=== PATIENT | female | born 1980 | race Caucasian/White ===

== ENCOUNTER → 2019-12-04 08:14 | Outpatient (CLI) | payer BC, SELFPAY ==
--- NOTE | ~2019-12-04 | MMUS_ITS ---
EXAMINATION: MM diagnostic bryce BI w cheyanne, US breast LT limited HISTORY: Palpable lump in the upper outer quadrant of the left breast, history of breast cancer in he r mother TECHNIQUE: Craniocaudal, mediolateral, and mediolateral oblique 3-D tomosynthesis images of the breas ts were performed and synthetic 2-D images were generated. . Compression views of the left breast are also obtained. CAD analysis was submitted and interpreted. High resolution limited left breast ultra sound was performed. COMPARISON: 11/10/2018, 04/02/2016 BREAST PARENCHYMAL COMPOSITION: The breasts are heterogeneously dense, which may obscure small masses . FINDINGS: MAMMOGRAPHIC FINDINGS: There is no evidence of suspicious mass, calcification, or architectural distortion in either breast to suggest malignancy. There has been no suspicious interval change. No mammographic correlate is i dentified for the reported palpable abnormality of the left breast. ULTRASOUND: There are four oval, circumscribed, parallel, hypoechoic masses with posterior acoustic enhancement a nd no internal vascularity at the 2:00 location 7 cm from the nipple in the area of palpable concern. The largest measures 7 mm x 3 mm. IMPRESSION: 1. Probable cysts in the upper outer quadrant of the left breast in the area of palpable concern. 2. Recommend 6 month follow-up targeted left breast ultrasound and annual screening mammography of th e right. BI-RADS category 3, probably benign findings. Reviewed, dictated and finalized at location A. 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 Probable cysts in the upper outer quadrant of the left breast in the area of palpable concern. 2. Recommend 6 month follow-up targeted left breast ultrasound and annual scree cielo mammography of the right. BI-RADS category 3, probably benign findings.
== END ==
PROVIDERS: Visit Provider Nurse Practitioner
DX: N63.21 Unspecified lump in the left breast, upper outer quadrant (principal); R92.8 Other abnormal and inconclusive findings on diagnostic imaging of breast
CPT/HCPCS: 76642; 77062; 77066; G0279

== ENCOUNTER → 2020-06-28 14:40 | Outpatient (CLI) | payer BC, SELFPAY ==
--- NOTE | ~2020-06-28 | US_ITS ---
US breast BI complete 06/28/2020 15:23 Indication: Dense breast. Six-month follow-up breast abnormality. Procedure: High-resolution bilateral breast ultrasound: Comparison: Comparison to multiple prior studies sequentially, with oldest reviewed study dated 01/2014. Findings: Right breast ultrasound: At 10:00, 7 cm from the nipple, there is an oval hypoechoic mass with parallel orientation, no signif icant posterior features or internal vascularity. There is heterogeneous internal echotexture. This m ass measures 7 x 5 x 7 mm. There are multiple additional simple and complicated cysts of the right br east. Left breast ultrasound: Multiple simple and complicated cyst of the left breast. At 2:00, 7 cm from the nipple, there is an o moses hypoechoic mass with circumscribed margins, parallel orientation, no posterior features measuring 6 x 3 x 5 mm. At 2:00, 7 cm from the nipple, there is an oval hypoechoic mass with parallel orientat ion, no posterior features measuring 4 mm maximum dimension. Impression: 1: Probable benign bilateral breast masses. Digital diagnostic bilateral mammogram recommended. BI-RADS CATEGORY 0 - INCOMPLETE STUDY, NEED ADDITIONAL IMAGING EVALUATION. Reviewed, dictated and finalized at location A. Impression: 1: Probable benign bilateral breast masses. Digital diagnostic bilateral mammog roxanne recommended. BI-RADS CATEGORY 0 - INCOMPLETE STUDY, NEED ADDITIONAL IMAGING EVALUATION.
--- NOTE | ~2020-06-28 | MM_ITS ---
EXAMINATION: MM diagnostic bryce BI w cheyanne HISTORY: Follow-up bilateral breast masses TECHNIQUE: Additional 3-D tomosynthesis images of the breasts were performed and synthetic 2-D images were generated. CAD analysis was submitted and interpreted. COMPARISON: Comparison to multiple prior studies sequentially, with oldest reviewed study dated 04/02. BREAST PARENCHYMAL COMPOSITION: The breasts are heterogenously dense, which may obscure small masses. FINDINGS: There are no suspicious masses, calcifications or architectural distortion in either breast to suggest malignancy. Bilateral breasts are stable. No abnormalities are identified to correspond t o the mass is identified by ultrasound. IMPRESSION: 1. Probable benign bilateral breast masses identified by ultrasound. 2. Recommend 6 month follow-up bilateral breast ultrasound BI-RADS category 3, probably benign findings. Reviewed, dictated and finalized at location A.
== END ==
DX: R92.2 Inconclusive mammogram (principal)
CPT/HCPCS: 76641; 77062; 77066; G0279

== ENCOUNTER → 2020-12-19 13:34 | Outpatient (CLI) | payer BC, SELFPAY ==
--- NOTE | ~2020-12-19 | US_ITS ---
US breast BI limited 12/19/2020 14:07 Indication: Follow-up bilateral breast masses Procedure: High-resolution Limited bilateral breast ultrasound Comparison: Comparison to multiple prior studies sequentially, with oldest reviewed study dated 12/04. Findings: There are multiple simple and complicated cysts of both breasts. In the right breast at 10: 00, 7 cm from the nipple, there is a stable 6 mm oval hypoechoic mass with low level internal echoes and posterior acoustic enhancement, compatible with a complicated cyst. No new or suspicious masses a re identified to suggest malignancy. Impression: 1: Stable benign bilateral breast masses. No evidence for malignancy. Routine yearly screening mammogram and regular clinical breast examination are recommended. BI-RADS CATEGORY 2 - BENIGN FINDINGS Reviewed, dictated and finalized at location A. 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 No evidence for malignancy. Routine yearly screening mammogram and regular clinical breast examination are recommended. BI-RADS CATEGORY 2 - BENIGN FINDINGS
== END ==
DX: Z91.89 Other specified personal risk factors, not elsewhere classified (principal)
CPT/HCPCS: 76642

== ENCOUNTER → 2023-06-30 09:13 | Outpatient (CLI) | payer BC, SELFPAY ==
--- NOTE | ~2023-06-30 | CT_ITS ---
CT of the Abdomen and Pelvis: Indication: Umbilical hernia Technique: 2.5 mm axial scans were obtained through the abdomen and pelvis following intravenous adm inistration of 100 cc of Omnipaque 350. Dose reduction technique was used on this scan by utilizing a utomated exposure control and iterative reconstruction technique. The dose-length product (DLP) was 7 60.26 mGy-cm. Findings: Scans through the lung bases demonstrate small to moderate hiatal hernia. The liver, spleen, pancreas, gallbladder, adrenals and kidneys are within normal limits. No evidence of aortic aneurysm. No lymphadenopathy. No bowel obstruction or bowel wall thickening. There is no evidence to suggest acute appendicitis. Sm all fat-containing umbilical hernia present. There is an additional fat-containing ventral hernia jus t superior to the umbilicus. Images through the pelvis were performed. Urinary bladder unremarkable. IUD in place. No adnexal mass seen. No ascites. Impression: Small fat-containing umbilical hernia. Additional fat-containing ventral hernia just superior to the umbilicus, slightly larger. IUD in place. [id number] hiatal hernia. Reviewed, dictated and finalized at location . Impression: Small fat-containing umbilical hernia. Additional fat-containing ventral hernia just superior to the umbilicus, slight ly larger. IUD in place. [id number] hiatal hernia.
== END ==
PROVIDERS: PCP Physician Assistant; Visit Provider Physician Assistant
DX: K42.9 Umbilical hernia without obstruction or gangrene (principal); K44.9 Diaphragmatic hernia without obstruction or gangrene
CPT/HCPCS: 74177; Q9967

== ENCOUNTER 2023-09-06 00:41 | Day surgery (SDC) | payer BC, SELFPAY ==
[2023-08-30 14:19] VITALS: BMI 29.0
--- NOTE | 2023-08-30 14:31 | PC.NURSE ---
Report to the Outpatient Waiting Room, entrance under the green pavilion located off [facility], at 0700 on 09/06/23. Planned Procedure Time: 0900. Time changes happen often and if your time is changed the preop area will call you the afternoon before. - You and your visitor will be asked to self-screen and do not enter if you have any COVID symptoms. - A mask is optional within the hospital at this time. Patients may have clear liquids (water, carbonated beverages, clear teas, apple juice) until 3 hours prior to surgery with a maximum of 20 ounces. - No food from midnight until time of surgery Take the following medications with a SIP of water the morning of surgery: none DO NOT STOP ANY OF YOUR OTHER PRESCRIPTION MEDICATIONS PRIOR TO SURGERY ?EXCEPT THE FOLLOWING Medications to discontinue per physician all vitamins/supplements 3 days prior Date to take last dose as above Please no make-up, nail welsh, hairspray, perfume, deodorant, or body powder the day of surgery. No jewelry (including any body piercings) or valuables the day of surgery, leave them at home. Please take a shower or bath the night before, or the morning of, surgery with an antibacterial soap. Wear comfortable, loose fitting clothing. - Jewelry must be removed prior to entering the operating room. Rings and piercings that are not removed may be cut off. - The hospital will not accept responsibility for valuables. - Please leave all valuables, including medications, at home the day of surgery. If you are going home after surgery, a licensed dedicated local truck driver must drive you home. - NO public transportation without another adult if you receive anesthesia. - We recommend that an adult stay with you for 24 hours following discharge. - We also recommend that you do not drive, make important decision, drink alcoholic beverages, or take any drugs that were not prescribed by your health care provider for at least 24 hours after your discharge time. Follow any additional instructions given to you from your surgeon. If you or anyone in your household have experienced Covid symptoms in the past week, please notify your surgeon or the nurse liaison at the phone number below for possible testing. Telephone instructions given to patient and asked if any additional questions and then verbalized understanding. Patient advised to call surgeon office or pre surgery nurse liaison [phone] if any additional questions.
[2023-09-06] VITALS (9 sets, daily range): BP systolic 102–140; BP diastolic 55–92; PULSE 64–98; RESP 16–20; TEMP 36.6; O2SAT 95–99
--- NOTE | 2023-09-06 07:08 | WPDANESEPPF ---
Anes - Initial Pre Proc Eval Procedure: Operation Date: 09/06/23 09:00 Proposed Procedures p Bilateral Laparoscopic Salpingectomy - Ca Burns MD Date/Time: 09/06/23 07:08 Surgeon: Ca Burns MD Pre Op Diagnosis: desires sterilization Patient Data Age: 43 Gender: F Height: 1.68 m Weight: 81.65 kg Allergies Allergy/AdvReac Type Severity Reaction Status Date / Time amoxicillin Allergy Severe hives/redne Verified 08/30/23 14:09 ss/blotchy gadobenic acid Allergy Severe hives/tongue Verified 08/30/23 14:11 [From contrast - MRI] swelling latex Allergy Severe hives/mouth Unverified 08/30/23 14:08 swelling Home Medications Medication Instructions Recorded Confirmed Type eletriptan 20 mg tablet 20 mg PO DAILY PRN Migraine 08/30/23 08/30/23 History Headache methocarbamol 500 mg tablet 50 mg PO DAILY PRN muscle tightness 08/30/23 08/30/23 History multivitamin with minerals-folic 1 tablet PO DAILY 08/30/23 08/30/23 History acid 0.4 mg tablet pantoprazole 40 mg tablet,delayed 40 mg PO DAILY 08/30/23 08/30/23 History release vitamin B complex (B 1 tablet PO DAILY 08/30/23 08/30/23 History Complex-Vitamin B12 tablet) Patient hx anesthesia problems: none Family hx anesthesia problems: none Results Review: All pre-operative results and documents have been reviewed as part of the pre-operative evaluation. [facility] Past Medical History Medical History (Updated 09/06/23 @ 07:10 by Graham Hercules DO) GERD (gastroesophageal reflux disease) Hiatal hernia Family History Family History (System 08/21/19 @ 12:49 by Ekaterina Mas) Grandparent Family history of obesity Family history of hearing loss Diabetes mellitus Mother Family history of obesity Patient's mother is in good health Father Patient's father is in good health Sibling Patient's brother is in good health Other Family history of malignant neoplasm Family history of malignant neoplasm of breast in first degree relative Hypertension Social History Social History (System 08/21/19 @ 12:49 by Ekaterina Mas) Smoking packs per day: 0.75 Smoking cigarettes per day: 15.0 Years smoked: 25 Smoking pack-years: 18.75 Smoking status: Former smoker Tobacco type: cigarettes Smoking end date: 07/24/20 Alcohol intake: current Drinks per week: 10 Alcohol use details: beer Substance use: former Other substance usage details: previous CBD usage Living arrangements: with family Spiritual care concerns: No Anes - Eval Final PreProcedure Day of Procedure 09/06/23 07:08 Patient weight: overweight Heart: regular rate and rhythm Lungs: clear to auscultation Airway: Mallampati scale class II Neurological: alert and oriented Last oral intake: >/= 8 hours ASA classification: III Emergent: no Anesthetic plan: proceed Anesthesia type and monitoring: general ETT and standard monitoring Results Review: All pre-operative results and documents have been reviewed as part of the pre-operative evaluation. Informed Consent: The patient's anesthetic plan and its attendant risks and benefits were discussed with the patient/family/POA. Questions were solicited and answers provided to the satisfaction of the patient/family/POA.
[2023-09-06] MEDS: LACTATED RINGERS 1,000 ML 30 ML IV CONT ×2 (07:10→09:49)
[2023-09-06] MEDS: KETOROLAC 15 MG/ML VIAL (*BKC) IV PUSH (07:19)
[2023-09-06] MEDS: ACETAMINOPHEN 500 MG TABLET 1000 MG PO (07:19)
--- NOTE | 2023-09-06 07:19 | WPDHPUPDATE1 ---
History and Physical Update Update Date/Time: 09/06/23 07:19 History and Physical has been reviewed, including an updated exam of the patient. There are NO changes in the patient's condition. Risks, benefits, and alternatives have been discussed and questions answered. Patient agrees to proceed with procedure.
--- NOTE | 2023-09-06 07:19 | PM.HPGS ---
History of Present Illness History of Present Illness Consent: Risks, benefits, and alternatives have been discussed and questions answered. Patient agrees to proceed with procedure. Chief complaint: desires sterilization Narrative: Symone Rose is a 43 year old female requesting permanent sterilization. Risks of infection, bleeding, and injury to internal organs was reviewed. In addition the risk of ectopic and tubal failure were reviewed. Patient voices understanding and agrees to proceed. Review of Systems Review of Systems: not repeated day of surgery; patient states no changes in status [facility] Past Medical History Medical History (Updated 09/06/23 @ 07:22 by Ca Burns MD) GERD (gastroesophageal reflux disease) Hiatal hernia Multiple sclerosis Surgical History Surgical History (Updated 09/06/23 @ 07:21 by Ca Burns MD) History of section, low transverse Family History Family History (System 08/21/19 @ 12:49 by Ekaterina Mas) Grandparent Family history of obesity Family history of hearing loss Diabetes mellitus Mother Family history of obesity Patient's mother is in good health Father Patient's father is in good health Sibling Patient's brother is in good health Other Family history of malignant neoplasm Family history of malignant neoplasm of breast in first degree relative Hypertension Social History Social History (System 08/21/19 @ 12:49 by Ekaterina Mas) Smoking packs per day: 0.75 Smoking cigarettes per day: 15.0 Years smoked: 25 Smoking pack-years: 18.75 Smoking status: Former smoker Tobacco type: cigarettes Smoking end date: 07/24/20 Alcohol intake: current Drinks per week: 10 Alcohol use details: beer Substance use: former Other substance usage details: previous CBD usage Living arrangements: with family Spiritual care concerns: No Meds Home Medications and Allergies Home Medications Medication Instructions Recorded Confirmed Type eletriptan 20 mg tablet 20 mg PO DAILY PRN Migraine 08/30/23 08/30/23 History Headache methocarbamol 500 mg tablet 50 mg PO DAILY PRN muscle tightness 08/30/23 08/30/23 History multivitamin with minerals-folic 1 tablet PO DAILY 08/30/23 08/30/23 History acid 0.4 mg tablet pantoprazole 40 mg tablet,delayed 40 mg PO DAILY 08/30/23 08/30/23 History release vitamin B complex (B 1 tablet PO DAILY 08/30/23 08/30/23 History Complex-Vitamin B12 tablet) Allergies Allergy/AdvReac Type Severity Reaction Status Date / Time amoxicillin Allergy Severe hives/redne Verified 09/06/23 07:21 ss/blotchy gadobenic acid Allergy Severe hives/tongue Verified 09/06/23 07:21 [From contrast - MRI] swelling latex Allergy Severe hives/mouth Unverified 09/06/23 07:21 swelling Exam Const: General: healthy appearing and alert Orientation/consciousness: patient oriented x3 Resp: Effort & Inspection: normal respiratory effort GI: GI Palp: Yes Soft to palpation, No Tenderness to palpation present (GI) and No Palpable mass present : External Female Exam: normal external appearance Speculum Exam - Vagina: normal appearance of the vagina and normal vaginal discharge Speculum Exam - Cervix: normal appearance of the cervix Bimanual exam- vagina & uterus: uterine size normal and consistency normal Bimanual Exam- Adnexa, other: normal adnexae and No adnexal tenderness Neuro: General: patient oriented x3 Assessment and Plan Assessment and plan (1) Encounter for sterilization: Code(s): Z30.2 - Encounter for sterilization Status: Acute Assessment and Plan: Plan to proceed with laparoscopic bilateral salpingectomy for sterilization
[2023-09-06 07:45] LABS: Beta HCG Quantitative < 2.39 mIU/ML
--- NOTE | 2023-09-06 08:31 | P.OP_ITS ---
Procedure Note - Detailed Date of Procedure 09/06/23 Pre-op Diagnosis desires sterilization Post-op Diagnosis Same Procedure Performed Laparoscopic bilateral salpingectomy Surgeon Ca Burns MD Anesthesia General Findings There is a small approximately 1/2cm fibroid at the fundus subserosal. Normal-appearing tubes and ovaries. Description of Procedure The patient is taken to the operating room and placed under anesthesia in the dorsal lithotomy position. She was prepped and draped usual sterile fashion. Bladder was drained with a red rubber catheter. [place] speculum was placed in the vagina and the cervix grasped on the anterior lip with a tenaculum. The acorn manipulator was placed. The speculum was removed. Attention was turned to the abdomen. A vertical skin incision was made at the base of the umbilicus. The abdomen is tented and the Veress needle placed. Water drop test is normal. Opening patient pressure was 6mmHg. Pneumoperitoneum is obtained to a patient pressure of 15 mmHg. The Veress needle was then removed and the 5mm Optiview trocar placed while tenting the abdomen. The intra-abdominal placement was confirmed with the laparoscope. The patient is placed in Trendelenburg and the 2 additional skin incisions were made at the incision once the left 1 to the right of midline. The 5mm trocars were placed under direct visualization. The blunt probe was used to bring the tubes into the surgical field. The left tube was grasped the fimbriated end with an atraumatic grasper. The LigaSure was used to cauterize and cut the mesosalpinx. Once the cornu was reached the tube was crossclamped approximately 1cm above the cornua, cauterized, and cut. The tube was removed through the lower port. The identical procedure was performed on the opposite side. The ports are removed and pneumoperitoneum reduced. The skin incisions were closed with 4-0 nylon in an interrupted fashion. Sterile bandages were applied. Vaginal instruments are removed. The patient was awakened from anesthesia and taken to recovery in stable condition. Drains No Packing No Pathology Yes (Bilateral tubes) Complications No immediate complications Condition Stable Disposition PACU
[2023-09-06] MEDS: ONDANSETRON INJ 4 MG/2 ML VIAL IV PUSH (09:17)
== END 2023-09-06 10:53 | disposition home or self-care (01) ==
PROVIDERS: PCP Physician Assistant; Visit Provider Obstetrics & Gynecology Gynecology
PROC: (CPT 49320; principal; 2023-09-06 09:00)
DX: Z30.2 Encounter for sterilization (principal); K21.9 Gastro-esophageal reflux disease without esophagitis; G35 Multiple sclerosis; Z87.891 Personal history of nicotine dependence; Z80.3 Family history of malignant neoplasm of breast
CPT/HCPCS: 58661; 36415; 84702; 88302; A9270; J1100; J1885; J2250; J2310; J2405; J2704; J7030; J7120

== ENCOUNTER → 2023-11-05 08:28 | Outpatient (CLI) | payer BC, SELFPAY ==
--- NOTE | ~2023-11-05 | US_ITS ---
EXAMINATION: US transvaginal DATE: 11/05/2023 08:59 INDICATION: Abnormal uterine bleeding TECHNIQUE: Multiple endovaginal sonographic images of the pelvis were obtained. COMPARISON: Pelvic ultrasound dated 09/19/[address] dated 06/30/2023 FINDINGS: The uterus measures 8.1 x 4.0 x 4.4 cm. The endometrial complex measures 11 mm in thickness. Cesarea n section scar along the anterior lower uterine segment. The right ovary measures 5.9 x 4.0 x 5.9 cm. There are couple complex cyst in the right ovary the larger measuring 3.2 cm in maximal diameter and the smaller measuring 2.7 cm maximal diameter. Both demonstrate subtle reticulated weblike pattern o f internal echoes most consistent with hemorrhagic cysts. The left ovary measures 2.8 x 1.9 x 2.0 cm. There is normal vascular flow in the ovaries. There is no free fluid in the pelvis. IMPRESSION: 1. Severe section scar along the anterior lower uterine segment. Otherwise normal uterus. 2. A couple complex right ovarian cysts measuring 2.2 cm and 2.7 cm with classic appearance for hemor rhagic cysts. Could consider 6-12 week follow-up ultrasound to document resolution. Reviewed, dictated and finalized at location A. 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 Severe section scar along the anterior lower uterine segment. Otherwise norm al uterus. 2. A couple complex right ovarian cysts measuring 2.2 cm and 2.7 cm with classi c appearance for hemorrhagic cysts. Could consider 6-12 week follow-up ultrasou nd to document resolution.
== END ==
PROVIDERS: PCP Nurse Practitioner; Visit Provider Nurse Practitioner
DX: N93.8 Other specified abnormal uterine and vaginal bleeding (principal)
CPT/HCPCS: 76830